=== PATIENT | female | born 1950 | race Caucasian/White ===

== ENCOUNTER 2022-07-08 10:16 | Emergency (ER) | payer OTHER ==
[~2022-07-08] VITALS: Ht 165.1 cm; Wt 66.2 kg
[2022-07-08] MEDS ORDERED: HYZAAR 100-12.1 EACH PO (10:32)
== END 2022-07-08 12:51 | disposition home or self-care (01) ==
LOC: ER 10:16
DX: B34.9 Viral infection, unspecified (principal); I10 Essential (primary) hypertension

== ENCOUNTER 2023-01-14 13:32 | Emergency (ER) | payer OTHER ==
[~2023-01-14] VITALS: Ht 165.1 cm; Wt 65.3 kg
[~2023-01-14 13:32] MED LIST: HYZAAR 100-12.1 EACH PO
== END 2023-01-14 16:09 | disposition home or self-care (01) ==
LOC: ER 13:32
DX: G56.00 Carpal tunnel syndrome, unspecified upper limb (principal)